=== PATIENT | female | born 1950 | race Caucasian/White ===

== ENCOUNTER 2018-08-01 17:54 | Emergency (ER) | payer OTHER, SELFPAY ==
--- OUTSIDE RECORDS SUMMARY | 2018-08-01 17:56 | XMS REPORT | Clinical Summary ---
:1950 Author Organization [facility] Address [address] [place] [address] Care Team Providers Name Role Phone Shayy Pollock Primary Care Provider Allergies No Known Allergies Current Medications Prescription Sig. Disp. Refills Start Date End Date Status UNABLE TO FIND Take 2 capsules by mouth 2 Active (two) times a day as needed. Med Name: black aidee lockhart Active Problems Problem Noted Date Arthritis, low back 06/14/2016 Overview: Pt had MRI of L/S in 2001 for herniated disc and was told she had low back arthritis as well History of herniated intervertebral disc 06/14/2016 Overview: Dx per pt by MRI in 2001 History of gallstones 06/14/2016 H/O thyroid cyst 06/14/2016 GERD (gastroesophageal reflux disease) Depression Family History Medical History Relation Name Comments Heart disease Brother dx in 40s and passed at 69 yoa Cancer Brother unknown type of cancer Other Brother back sugery Hypertension Brother No Known Problems Brother Cancer Father Liver cancer Father Arthritis Maternal Grandmother Old age Maternal Grandmother Alzheimer's disease Mother Depression Mother Glaucoma Mother Cancer Paternal Grandfather Old age Paternal Grandmother No Known Problems Sister No Known Problems Sister Relation Name Status Comments Brother Brother Alive Brother Alive Brother Alive Brother Alive Father Maternal Grandfather heart disease Maternal Grandmother Mother Paternal Grandfather liver cancer Paternal Grandmother Sister Alive Sister Alive Social History Tobacco Use Types Packs/Day Years Used Date Never Smoker Smokeless Tobacco: Never Used Alcohol Use Drinks/Week oz/Week Comments Yes social Sex Assigned at Date Recorded Not on file Last Filed Vital Signs Not on file Plan of Treatment Health Maintenance Due Date Last Done Comments BREAST CANCER SCREENING 2002 COLON CANCER SCREENING 2002 SHINGRIX VACCINE (#1) 2002 ZOSTER VACCINE 2012 PNEUMOCOCCAL POLYSACCHARIDE VACCINE AGE 65 AND OVER 2017 PNEUMOCOCCAL-13 2017 INFLUENZA VACCINE 06/06/2018 Results Not on fileafter 07/31/2017 Insurance Payer Benefit Plan / Group Subscriber ID Type Phone Address AETNA AETNA HMO,POS,EPO, MC/EC xxxxxxxxxx HMO Home: Narendra GREEN [phone] [address]
[2018-08-01 18:33] LABS: Urine Bacteria 20-50 /HPF (<20); Urine Culture Reflex Order REFLEXED; Urine Mucus 2+ /HPF (NONE SEEN); Urine RBC <5 /HPF (NONE SEEN)
[2018-08-01] MEDS ORDERED: NA CHLORIDE 0.9% 1,000 ML ONE (18:53)
[2018-08-01] MEDS ORDERED: CEFTRIAXONE/SWI 1gm 1 GM/10 ML SYR ONE (18:53)
--- NOTE | 2018-08-01 19:13 | RAD REPORT ---
EXAM DESCRIPTION: CT - Stone Protocol - 08/01/2018 6:56 pm CLINICAL HISTORY: Abdominal pain. Dysuria y COMPARISON: None. TECHNIQUE: Computed axial tomography of the abdomen pelvis was obtained without oral or IV contrast. Lack of IV and oral contrast limits evaluation of solid organs, bowel, and vessels. Coronal reformat tere images were obtained and reviewed. All CT scans are performed using dose optimization technique as appropriate and may include automated exposure control or mA/KV adjustment according to patient size. FINDINGS: A renal calculus is not seen. An ureteral calculus is not noted. A bladder calculus is not present. The gallbladder has been removed A 15 millimeter low-density areas present within the dome of the liver. , spleen, pancreas and adrena ls appear grossly normal A hysterectomy has been performed. The appendix appears normal IMPRESSION: Negative for a genitourinary calculus 15 millimeter low-density area within the dome the liver is nonspecific. A nonemergent liver ultrasou nd is recommended.
[2018-08-01 19:18] LABS: Potassium 3.9 mmol/L (3.5-5.1)
[2018-08-01 19:20] LABS: Absolute Lymphocytes (CBC) 1.3 K/uL (0.7-4.9); Absolute Monocytes 0.9 K/uL (0.1-1.3); Basophils % 0.2 % (0-1.3); Eosinophils % 0.5 % (0-4.4); Hematocrit 38.2 % (36.0-45.0); Lymphocytes % 10.8 % (15.3-44.8); MCH 30.9 pg (27.0-35.0); MCV 92.7 fL (80-100); MPV 7.1 fL (7.6-11.3); RBC Red Blood Cell Count 4.12 M/uL (3.86-4.86)
--- NOTE | 2018-08-01 19:39 | ER ---
Nurse's Notes [facility] Name: Sarahi Howard Age: 68 yrs Sex: Female : 1950 Arrival Date: 08/01/2018 Time: 17:57 Bed 23 Private MD: None, None Diagnosis: Urinary tract infection, site not specified Presentation: 08/01 18:07 Presenting complaint: Patient states: i really started feeling bad today, but i have tw2 probably just ignored it for a while, burning with urination frequency. Transition of care: patient was not received from another setting of care. Onset of symptoms was August 01, 2018. Risk Assessment: Do you want to hurt yourself or someone else? Patient reports no desire to harm self or others. Initial Sepsis Screen: Does the patient meet any 2 criteria? No. Patient's initial sepsis screen is negative. Does the patient have a suspected source of infection? No. Patient's initial sepsis screen is negative. Care prior to arrival: None. 18:07 Method Of Arrival: Ambulatory tw2 18:07 Acuity: PASCUAL 3 tw2 Historical: - Allergies: 18:08 No Known Allergies; tw2 - Home Meds: 18:08 None [Active]; tw2 - PSHx: 18:08 None; tw2 - Immunization history:: Adult Immunizations up to date. - Social history:: Smoking status: Patient/guardian denies using tobacco. - Ebola Screening: : Patient denies travel to an Ebola-affected area in the 21 days before illness onset. Screenin:15 Abuse screen: Denies threats or abuse. Denies injuries from another. Nutritional kr2 screening: No deficits noted. Tuberculosis screening: No symptoms or risk factors identified. Fall Risk None identified. Assessment: 18:15 General: Appears in no apparent distress. comfortable, well groomed, well developed, kr2 well nourished, Behavior is calm, cooperative, appropriate for age. Pain: Complains of pain in left low back and right low back Pain currently is 5 out of 10 on a pain scale. Quality of pain is described as aching, Is continuous. Neuro: Level of Consciousness is awake, alert, obeys commands, Oriented to person, place, time, situation. Cardiovascular: Capillary refill < 3 seconds in bilateral fingers Patient's skin is warm and dry. Respiratory: Airway is patent Respiratory effort is even, unlabored, Respiratory pattern is regular, symmetrical. GI: Abdomen is flat, non-distended. : Reports burning with urination, urinary frequency. EENT: Oral mucosa is moist. Derm: Skin is intact, is healthy with good turgor, Skin is pink, warm \T\ dry. Musculoskeletal: Circulation, motion, and sensation intact. Vital Signs: 18:08 BP 154 / 76; Pulse 69; Resp 17; Temp 99.3(O); Pulse Ox 99% on R/A; tw2 19:28 BP 120 / 67; Pulse 65; Resp 16; Pulse Ox 98% on R/A; kr2 ED Course: 17:57 Patient arrived in ED. sb2 17:57 None, None is Private Physician. sb2 18:08 Triage completed. tw2 18:08 Arm band placed on. tw2 18:12 Marquita Ohara F[facility]-C [facility]. kb 18:12 Layo Acevedo MD is Attending Physician. kb 18:15 Patient has correct armband on for positive identification. Bed in low position. Call kr2 light in reach. Side rails up X 1. Pulse ox on. NIBP on. Door closed. Warm blanket given. Head of bed elevated. 18:15 Urine collected: clean catch specimen, clear, jackelin colored, Amount Voided: 110mL. jp3 18:25 Lolis Danielle, RN is Primary Nurse. kr2 18:29 Urine Microscopic Only Sent. jp3 18:35 Urine Culture Sent. jp3 18:45 Initial lab(s) drawn, by or, sent to lab. Inserted saline lock: [address] [facility] antecubital area, using aseptic technique. Blood collected. 18:[address] via wheelchair. nj 18:52 Basic Metabolic Panel Sent. jp3 18:52 CBC with Diff Sent. jp3 18:52 Urine Culture Sent. jp3 18:56 CT Stone Protocol In Process Unspecified. EDMS 18:56 CT completed. Patient tolerated procedure well. Patient moved back from [place]. nj 19:34 No provider procedures requiring assistance completed. kr2 20:17 IV discontinued, intact, bleeding controlled, No redness/swelling at site. wh Administered Medications: 18:55 Drug: NS 0.9% 1000 ml Route: IV; Rate: 1000 ml; Site: right antecubital; kr2 20:17 Follow up: Response: No adverse reaction; IV Status: Completed infusion 18:55 Drug: Rocephin - (cefTRIAXone) 1 grams Route: IVPB; Infused Over: 30 mins; Site: right kr2 antecubital; 20:17 Follow up: Response: No adverse reaction; IV Status: Completed infusion Outcome: 19:39 Discharge ordered by MD. cabral 20:16 Discharged to home ambulatory. 20:16 Condition: good 20:16 Discharge instructions given to Instructed on discharge instructions, follow up and referral plans. medication usage, POC UTI Demonstrated understanding of instructions, follow-up care, medications, POC Prescriptions given X 1. 20:18 Patient left the ED. Signatures: Dispatcher [employer] EDMS Marquita Ohara, PHOTORESIST CONTACT PRINTER-C PHOTORESIST CONTACT PRINTER-Ckb Maryanne Mcdonald, RN RN tw2 Tyree Casey Winsy Lolis Danielle RN RN kr2 Iliana Luna sb2 George Dawson jp3 Corrections: (The following items were deleted from the chart) 19:20 18:55 Rocephin - (cefTRIAXone) 1 grams IVPB in right forearm over 30 mins kr2 kr2 19:20 18:55 NS 0.9% 1000 ml IV at 1000 ml in right forearm kr2 kr2 19:32 18:15 : Reports urinary frequency, kr2 kr2
--- NOTE | 2018-08-01 19:39 | EDPHYS ---
Physician Documentation [facility] Name: Sarahi Howard Age: 68 yrs Sex: Female : 1950 Arrival Date: 08/01/2018 Time: 17:57 Bed 23 Private MD: None, None ED Physician Layo Acevedo HPI: 08/01 19:29 This 68 yrs old Female presents to ER via Ambulatory with complaints of UTI. kb 19:29 The patient presents with flank pain, on the right, urinary symptoms, dysuria, kb frequency. Onset: The symptoms/episode began/occurred this morning. Modifying factors: The symptoms are alleviated by nothing, the symptoms are aggravated by urinating. Associated signs and symptoms: Pertinent positives: dysuria, fever, urinary frequency. Severity of symptoms: At their worst the symptoms were mild, moderate, in the emergency department the symptoms are unchanged. The patient has not experienced similar symptoms in the past. The patient has been recently seen at an urgent care, just prior to arrival, for similar complaints, and was sent to the [facility] Emergency Department for further evaluation. Historical: - Allergies: 18:08 No Known Allergies; tw2 - Home Meds: 18:08 None [Active]; tw2 - PSHx: 18:08 None; tw2 - Immunization history:: Adult Immunizations up to date. - Social history:: Smoking status: Patient/guardian denies using tobacco. - Ebola Screening: : Patient denies travel to an Ebola-affected area in the 21 days before illness onset. ROS: 19:28 Cardiovascular: Negative for chest pain, palpitations, and edema, Respiratory: Negative kb for shortness of breath, cough, wheezing, and pleuritic chest pain, Abdomen/GI: Negative for abdominal pain, nausea, vomiting, diarrhea, and constipation, MS/Extremity: Negative for injury and deformity, Skin: Negative for injury, rash, and discoloration, Neuro: Negative for headache, weakness, numbness, tingling, and seizure. 19:28 Constitutional: Positive for fever, Negative for body aches, chills, fatigue, malaise, poor PO intake, weight loss. 19:28 : Positive for urinary symptoms, flank pain, urinary frequency, burning with urination, difficulty urinating. Exam: 19:27 Constitutional: This is a well developed, well nourished patient who is awake, alert, kb and in no acute distress. Head/Face: Normocephalic, atraumatic. Chest/axilla: Normal chest wall appearance and motion. Nontender with no deformity. No lesions are appreciated. Cardiovascular: Regular rate and rhythm with a normal S1 and S2. No gallops, murmurs, or rubs. Normal PMI, no JVD. No pulse deficits. Respiratory: Lungs have equal breath sounds bilaterally, clear to auscultation and percussion. No rales, rhonchi or wheezes noted. No increased work of breathing, no retractions or nasal flaring. Abdomen/GI: Soft, non-tender, with normal bowel sounds. No distension or tympany. No guarding or rebound. No evidence of tenderness throughout. Back: No spinal tenderness. No costovertebral tenderness. Full range of motion. Skin: Warm, dry with normal turgor. Normal color with no rashes, no lesions, and no evidence of cellulitis. MS/ Extremity: Pulses equal, no cyanosis. Neurovascular intact. Full, normal range of motion. Neuro: Awake and alert, GCS 15, oriented to person, place, time, and situation. Cranial nerves II-XII grossly intact. Motor strength 5/5 in all extremities. Sensory grossly intact. Cerebellar exam normal. Normal gait. Vital Signs: 18:08 BP 154 / 76; Pulse 69; Resp 17; Temp 99.3(O); Pulse Ox 99% on R/A; tw2 19:28 BP 120 / 67; Pulse 65; Resp 16; Pulse Ox 98% on R/A; kr2 MDM: 18:12 Patient medically screened. kb 19:27 Data reviewed: vital signs, nurses notes. Data interpreted: Pulse oximetry: on room air kb is 99 %. Interpretation: normal. Counseling: I had a detailed discussion with the patient and/or guardian regarding: the historical points, exam findings, and any diagnostic results supporting the discharge/admit diagnosis, lab results, radiology results, the need for outpatient follow up, a family practitioner, to return to the emergency department if symptoms worsen or persist or if there are any questions or concerns that arise at home. 08/01 18:12 Order name: Urine Microscopic Only; Complete Time: 18:34 kb 08/01 18:34 Order name: Urine Culture EDMS 08/01 18:35 Order name: CBC with Diff; Complete Time: 19:25 kb 08/01 18:35 Order name: Basic Metabolic Panel; Complete Time: 19:25 kb 08/01 19:14 Order name: Urine Dipstick--Ancillary (enter results); Complete Time: 19:47 mt 08/01 19:14 Order name: Urine --Ancillary (enter results); Complete Time: 19:47 mt 08/01 18:12 Order name: Urine Dipstick-Ancillary (obtain specimen); Complete Time: 18:29 kb 08/01 18:35 Order name: CT Stone Protocol; Complete Time: 19:15 kb 08/01 18:35 Order name: IV Start; Complete Time: 18:51 kb Administered Medications: 18:55 Drug: NS 0.9% 1000 ml Route: IV; Rate: 1000 ml; Site: right antecubital; kr2 20:17 Follow up: Response: No adverse reaction; IV Status: Completed infusion 18:55 Drug: Rocephin - (cefTRIAXone) 1 grams Route: IVPB; Infused Over: 30 mins; Site: right kr2 antecubital; 20:17 Follow up: Response: No adverse reaction; IV Status: Completed infusion Disposition: 08/02 07:11 Co-signature as Attending Physician, Layo Acevedo MD. rn Disposition: 08/01/18 19:39 Discharged to Home. Impression: Urinary tract infection, site not specified. - Condition is Stable. - Discharge Instructions: Urinary Tract Infection, Adult, [id number]. - Prescriptions for Macrobid 100 mg Oral Capsule - take 1 capsule by ORAL route every 12 hours for 7 days; 14 capsule. - Medication Reconciliation Form, Thank You Letter, Antibiotic Education, Prescription Opioid Use form. - Follow up: Emergency Department; When: As needed; Reason: Worsening of condition. Follow up: Private Physician; When: 2 - 3 days; Reason: Recheck today's complaints, Continuance of care, Re-evaluation by your physician. Signatures: Dispatcher [employer] EDPR Marquita Ohara, WEALTH MANAGEMENT ADVISOR-C WEALTH MANAGEMENT ADVISOR-Ckb Layo Acevedo MD MD rn Wise, Tara, RN RN tw2 Leslie Aranda Lolis Danielle RN RN kr2 Corrections: (The following items were deleted from the chart) 08/01 20:18 19:39 08/01/2018 19:39 Discharged to Home. Impression: Urinary tract infection, site wh not specified. Condition is Stable. Forms are Medication Reconciliation Form, Thank You Letter, Antibiotic Education, Prescription Opioid Use. Follow up: Emergency Department; When: As needed; Reason: Worsening of condition. Follow up: Private Physician; When: 2 - 3 days; Reason: Recheck today's complaints, Continuance of care, Re-evaluation by your physician. kb
[2018-08-01 19:45] LABS: Urine Blood 2+ (NEG); Urine Glucose NEGATIVE (NEG); Urine Protein 1+ (NEG); Urine Specific Gravity 1.015 (1.005-1.030)
[2018-08-01 20:58] VITALS: TEMP 99.3
[2018-08-01 20:59] VITALS: BP 120/67; O2SAT 98
== END 2018-08-01 20:18 | disposition home or self-care (01) ==
LOC: ER 17:54
DX: N39.0 Urinary tract infection, site not specified (principal)
CPT/HCPCS: 36415; 74176; 76377; 80048; 81003; 81015; 81025; 85025; 87086; 87088; J0696; J7030